=== PATIENT | male | born 1965 | race Caucasian/White ===

== ENCOUNTER 2018-04-27 11:18 | Inpatient (IN) | payer OTHER ==
[~2018-04-27] VITALS: Ht 160 cm; Wt 121.1 kg
[2018-05-10] MEDS ORDERED: METOPROLOL SUCC50 MG PO (09:42)
[2018-05-10] MEDS ORDERED: COZAAR25 MG PO (09:43)
[2018-05-10] MEDS ORDERED: AMILODIPINE PO (09:43)
[2018-05-10] MEDS ORDERED: GLIPIZIDE10 MG PO (09:44)
[2018-05-17] MEDS ORDERED: NORVASC5 MG PO (10:11)
== END 2018-05-19 20:34 | DRG 470 ==
LOC: SURG 05-17 05:15 → O/R 05-17 05:15 → SURG 05-17 07:15
PROVIDERS: Orthopaedic Surgery
PROC: 0SRC0J9 Replacement of Right Knee Joint with Synthetic Substitute, Cemented, Open Approach (ICD-10-PCS; principal; 2018-05-17 09:00)
DX: M17.11 Unilateral primary osteoarthritis, right knee (principal); I10 Essential (primary) hypertension; E11.9 Type 2 diabetes mellitus without complications